=== PATIENT | female | born 1995 | race Caucasian/White ===

== ENCOUNTER → 2017-06-10 | Outpatient (CLI) | payer BC ==
--- NOTE | 2017-06-10 12:24 | US ---
EXAMINATION TYPE: US pelvis complete transvag DATE OF EXAM: 06/10/2017 COMPARISON: NONE CLINICAL HISTORY: 22-year-old female N94.6 Dysmenorrhea. TECHNIQUE: Transabdominal sonographic images of the pelvis were acquired. Transvaginal sonographic images were medically necessary to better assess the following anatomy: OVARIES. Date of LMP: 05/20/2017 Findings: Uterus: Anteverted measuring 7.2 x 2.6 x 3.4 cm. Prominent myometrial vessels incidentally noted. Endometrial Stripe: 0.6 cm, within normal limits. Right Ovary: 3.3 x 1.4 x 3.9 cm for a volume of 7.8 mL. Left Ovary: 1.5 x 1.1 x 1.7 cm for a volume of 1.5 mL. Follicular changes present on both sides. Small amount of cul-de-sac free fluid likely physiologic. No evident adnexal abnormality. IMPRESSION: 1. Normal size ovaries with follicular change. 2. Small amount of cul-de-sac free fluid likely physiologic. 3. Some incidental prominent myometrial vessels also likely physiologic change.
== END | disposition home or self-care (01) ==
LOC: RADUSWWP 09:23
PROVIDERS: ATTEND Obstetrics & Gynecology
DX: N83.8 Other noninflammatory disorders of ovary, fallopian tube and broad ligament (principal); N94.6 Dysmenorrhea, unspecified
CPT/HCPCS: 76830; 76856